=== PATIENT | male | born 1990 | race African-American/Black ===

== ENCOUNTER 2021-05-25 11:56 | Outpatient (REF) | payer OTHER, SELFPAY ==
[2021-05-25 12:37] LABS: MANUAL DIFF FLAG NO
[2021-05-25 12:41] LABS: Basophils Percent Auto 0.3 % (0-2); Eosinophils Absolute Auto 0.1 X10*3/uL (0.0-0.4); Eosinophils Percent Auto 1.9 % (0-4); Hematocrit 40.8 % (42-52); Hemoglobin 13.3 g/dl (14.0-18.0); Imm Gran Abs Auto 0.01 X10*3/uL (0.00-0.03); Imm Gran Pct Auto 0.2 % (0.0-0.4); Lymphocytes Absolute Auto 2.5 X10*3/uL (1.2-4.9); Lymphocytes Percent Auto 39.4 % (20-40); Mean Corpuscular HGB Conc 32.6 g/dl (31.0-36.0); Mean Corpuscular Hemoglobin 28.8 pg (27.0-33.0); Mean Corpuscular Volume 88.3 fL (80-98); Mean Platelet Volume 10.9 fL (9.4-12.4); Monocytes Absolute Auto 0.7 X10*3/uL (0.1-1.2); Monocytes Percent Auto 10.2 % (2-11); Neutrophils Absolute Auto 3.1 X10*3/uL (2.0-8.3); Platelet Count 219 X10*3/uL (160-400); Red Blood Count 4.62 X10*6/uL (4.60-5.80); Red Cell Distribution Width 12.9 % (11.0-16.0); White Blood Count 6.4 X10*3/uL (4.8-10.8)
[2021-05-25 13:20] LABS: Alanine Aminotransferase 15 U/L (0-40); Albumin Level 4.4 g/dL (3.5-5.0); Alkaline Phosphatase 49 U/L (39-117); Anion Gap 10 (12-20); Aspartate Amino Transferase 26 U/L (5-37); Bilirubin Total 0.3 mg/dL (0.0-1.0); Blood Urea Nitrogen 15 mg/dL (9-16); Calcium 9.4 mg/dL (8.4-10.2); Carbon Dioxide 28 mmol/L (22-29); Chloride 105 mmol/L (96-108); Cholesterol 161 mg/dL; Estimated Glomerular Filt Rate > 60; Glucose Random 95 mg/dL (60-115); HDL Cholesterol 72 mg/dL; LDL Cholesterol Calculated 83 mg/dl; Potassium 4.3 mmol/L (3.3-5.1); Sodium 139 mmol/L (135-145); Total Protein 7.3 g/dL (6.5-8.0); Triglycerides 34 mg/dL
[2021-05-25 15:24] LABS: CT PCR NOT DETECTED (Not Detect.); NG PCR NOT DETECTED (Not Detect.)
[2021-05-27 08:18] LABS: HIV AB/AG Nonreactive (Nonreactive); HIV Num 1 0.19 S/CO (0.00-0.99)
[2021-05-30 13:21] LABS: Treponema pallidum Ab FTA ABS Nonreactive (Nonreactive)
== END 2021-05-25 11:57 | disposition home or self-care (01) ==
LOC: HO.LAB 11:56
PROVIDERS: PCP Internal Medicine; Visit Provider Internal Medicine
DX: Z11.3 Encounter for screening for infections with a predominantly sexual mode of transmission (principal); Z11.4 Encounter for screening for human immunodeficiency virus [HIV]; A59.00 Urogenital trichomoniasis, unspecified; L24.2 Irritant contact dermatitis due to solvents
CPT/HCPCS: 80053; 80061; 85025; 86780; 87389; 87491; 87591

== ENCOUNTER 2021-08-18 08:34 | Outpatient (REF) | payer OTHER, SELFPAY ==
--- NOTE | ~2021-08-18 | MM_ITS ---
EXAMINATION: MM DIAGNOSTIC DIGITAL BREAST TOMOSYNTHESIS, BILATERAL US DIAGNOSTIC ULTRASOUND BREAST, RIGHT CLINICAL INFORMATION: 31-year-old male with mild fullness subareolar right breast for 2 weeks, decreasing. Some intermittent tenderness bilateral nipples. No discharge. No known family history breast cancer. No prior breast imaging. COMPARISON: None (current study represents initial baseline exam). TECHNIQUE: Digital breast tomosynthesis is performed in both the craniocaudal and mediolateral oblique views along with computer-aided detection (CAD). Synthesized 2D images are generated from the tomosynthesis. Ultrasound right breast is targeted to the subareolar and retroareolar region. Comparison imaging performed left breast at real-time scanning. FINDINGS: There are scattered areas of fibroglandular density (ACR BI-RADS breast composition Category b). Breast tissue composition borders on predominantly fatty. There is some minor fibroglandular attenuation central bilateral subareolar breasts suggesting borderline gynecomastia. There is no mass or architectural abnormality or abnormal calcifications. The axilla and skin contours are unremarkable. No skin thickening or coarsening of the stromal markings. Ultrasound right breast is normal. There is no mass or architectural abnormality or duct ectasia. No skin thickening or edema tracking in soft tissue planes. Results are discussed with the patient at time of visit. MM/MM tomosynthesis diagnostic BI IMPRESSION: 1. Borderline gynecomastia. No mammographic evidence of malignancy or inflammatory changes. 2. Normal targeted right breast ultrasound. ASSESSMENT: BI-RADS 2: Benign RECOMMENDATION: Patient may be managed based on the clinical impression. If clinically indicated, further evaluation may be considered with surgical consult. Decision to proceed with biopsy should be based on clinical grounds and degree of clinical concern.
== END 2021-08-18 08:35 | disposition home or self-care (01) ==
LOC: HO.MAMMO 08:34
PROVIDERS: Visit Provider Internal Medicine
DX: N63.10 Unspecified lump in the right breast, unspecified quadrant (principal)
CPT/HCPCS: 76642; 77062; 77066

== ENCOUNTER 2022-01-06 16:45 | Outpatient (REF) | payer OTHER, SELFPAY ==
[2022-01-07 06:22] LABS: CT PCR NOT DETECTED (Not Detect.); NG PCR NOT DETECTED (Not Detect.)
[2022-01-09 07:40] LABS: HIV AB/AG Nonreactive (Nonreactive); HIV Num 1 0.14 S/CO (0.00-0.99)
[2022-01-10 12:37] LABS: Treponema pallidum Ab FTA ABS Nonreactive (Nonreactive)
== END 2022-01-06 16:46 | disposition home or self-care (01) ==
LOC: HO.LAB 16:45
PROVIDERS: PCP Internal Medicine; Visit Provider Internal Medicine
DX: Z11.3 Encounter for screening for infections with a predominantly sexual mode of transmission (principal); Z11.4 Encounter for screening for human immunodeficiency virus [HIV]; Z20.2 Contact with and (suspected) exposure to infections with a predominantly sexual mode of transmission
CPT/HCPCS: 86780; 87389; 87491; 87591

== ENCOUNTER 2023-05-01 17:05 | Outpatient (REF) | payer OTHER, SELFPAY ==
[2023-05-01 18:33] LABS: Alanine Aminotransferase 17 U/L (0-40); Albumin Level 4.2 g/dL (3.5-5.0); Alkaline Phosphatase 43 U/L (39-117); Anion Gap 11 (12-20); Aspartate Amino Transferase 37 U/L (5-37); Bilirubin Total 0.5 mg/dL (0.0-1.0); Blood Urea Nitrogen 13 mg/dL (9-16); Calcium 9.5 mg/dL (8.4-10.2); Carbon Dioxide 29 mmol/L (22-29); Chloride 106 mmol/L (96-108); Cholesterol 149 mg/dL; Estimated Glomerular Filt Rate > 60; Glucose Random 125 mg/dL (60-115); HDL Cholesterol 44 mg/dL; LDL Cholesterol Calculated 88 mg/dl; Potassium 3.8 mmol/L (3.3-5.1); Sodium 142 mmol/L (135-145); Triglycerides 89 mg/dL
[2023-05-02 04:31] LABS: Syphilis Screen Nonreactive (Nonreactive)
[2023-05-02 04:32] LABS: HIV AB/AG Nonreactive (Nonreactive); HIV Num 1 0.13 S/CO (0.00-0.99)
[2023-05-02 09:15] LABS: CT PCR NOT DETECTED (Not Detect.); NG PCR NOT DETECTED (Not Detect.)
== END 2023-05-01 17:06 | disposition home or self-care (01) ==
LOC: HO.LAB 17:05
PROVIDERS: PCP Internal Medicine; Visit Provider Internal Medicine
DX: Z00.00 Encounter for general adult medical examination without abnormal findings (principal); I10 Essential (primary) hypertension; Z20.2 Contact with and (suspected) exposure to infections with a predominantly sexual mode of transmission; Z13.31 Encounter for screening for depression
CPT/HCPCS: 0353U; 80053; 80061; 86780; 87389

== ENCOUNTER 2024-04-02 15:19 | Outpatient (REF) | payer OTHER, SELFPAY ==
--- NOTE | ~2024-04-02 | XR_ITS ---
EXAMINATION: XR FOOT, RIGHT CLINICAL INFORMATION: Rule out fracture, patient states she fell after twisting foot last night. COMPARISON: None available. TECHNIQUE: AP, lateral, and oblique views of the right foot. FINDINGS: The bone mineralization is normal. Joint spaces and alignment are preserved. Small ossicle versus focus of hypertrophy along the medial base of the first metatarsal, possibly representing a nondisplaced fracture of indeterminate age. Mild degenerative changes with sclerosis along the first tarsometatarsal joint. XR/XR foot RT min 3V IMPRESSION: Small ossicle versus focus of hypertrophy along the medial base of the first metatarsal, possibly representing a nondisplaced fracture of indeterminate age. Correlation with clinical exam recommended to determine further management. This study was presented Tuesday, April 16, 2024 for interpretation. PSA staff will provide results to referring provider at this time.
== END 2024-04-02 15:20 | disposition home or self-care (01) ==
LOC: HO.XRAY 15:19
PROVIDERS: PCP Internal Medicine; Visit Provider Internal Medicine
DX: S93.601D Unspecified sprain of right foot, subsequent encounter (principal)
CPT/HCPCS: 73630